=== PATIENT | male | born 1930 | race Caucasian/White ===

== ENCOUNTER → 2017-09-24 | Outpatient (CLI) | payer MEDICARE, BC ==
[~2017-09-24] MED LIST: ALDACTAZIDE; ALDACTAZIDE 501 EACH PO; ALFUZOSIN HCL10 MG PO; B 12; DIGOXIN; DIGOXIN50 MCG/1 M PO; ELIQUIS PO; GABAPENTIN300 MG PO; METFORMIN HCL500 MG PO; MULTI VIT; PRAVASTATIN SOD80 MG PO; TIZANIDINE HCL4 M1 PO; VIT. E; WARFARIN; [UNRECOGNIZED DRUG - CODE]
--- NOTE | 2017-09-24 15:03 | Diagnostic Imaging Report ---
PROCEDURE:X-RAY MODIFIED BARIUM SWALLOW COMPARISON:None. INDICATIONS:DYSPHAGIA, SILENT ASPIRATION THINS DISCUSSION:Fluoroscopic examination was performed in conjunction with speech pathology, during swallowing of a variety of thin and thick liquid consistencies. The radiologist was in attendance. There was penetration into the laryngeal vestibule to the level of the vocal cords with thin liquids only. Intermittently patient produced a cough which was not effective in clearing the penetrated material. There was one episode of silent minimal aspiration of thin liquids after swallowing. Residua in the vallecula fell into the laryngeal vestibule and eventually spilled into the airway. Fluoroscopy time: 1.7 minutes Total dose: 11.10 mGy CONCLUSION:Penetration and aspiration noted. Please see the report from speech pathology for complete details. Bruce Carter D.O. Dictated by: Bruce Carter D.O. on 09/24/2017 at 15:11 Electronically approved by: Bruce Carter D.O. on 09/24/2017 at 15:11
== END ==
LOC: DX 12:23
PROVIDERS: ATTEND Otolaryngology
DX: R13.13 Dysphagia, pharyngeal phase (principal)
CPT/HCPCS: 74230; 92611; G8996; G8997

== ENCOUNTER 2017-10-21 09:58 | Outpatient (RCR) | payer MEDICARE, BC | END 2017-10-22 | LOC: PT 09:58 | PROVIDERS: ATTEND Otolaryngology | DX: R13.13 Dysphagia, pharyngeal phase (principal); K21.9 Gastro-esophageal reflux disease without esophagitis | CPT/HCPCS: 92526 ×6; 97110 ×5; 97162; G8978; G8979; G8996; G8997 ==

== ENCOUNTER 2017-11-11 09:48 | Outpatient (RCR) | payer MEDICARE, BC | END 2017-11-19 | LOC: ST 09:48 | PROVIDERS: ATTEND Otolaryngology | DX: R13.13 Dysphagia, pharyngeal phase (principal); K21.9 Gastro-esophageal reflux disease without esophagitis | CPT/HCPCS: 92526 ×6; 97110 ×2; G8979; G8980 ==

== ENCOUNTER → 2017-11-25 | Outpatient (CLI) | payer MEDICARE, BC ==
--- NOTE | 2017-11-25 13:55 | Diagnostic Imaging Report ---
PROCEDURE:X-RAY MODIFIED BARIUM SWALLOW COMPARISON:None. INDICATIONS:Not provided. DISCUSSION:Fluoroscopic examination was performed in conjunction with speech pathology, during swallowing of a variety of thin and thick liquid consistencies. Fluoroscopy time: 1.7 min Total Dose: 10.07 mGy CONCLUSION:No penetration or aspiration. Please see the report from speech pathology for complete details. Bruce Carter D.O. Dictated by: Bruce Carter D.O. on 11/25/2017 at 13:55 Electronically approved by: Bruce Carter D.O. on 11/25/2017 at 13:55
== END ==
LOC: DX 10:34
PROVIDERS: ATTEND Otolaryngology
DX: R13.13 Dysphagia, pharyngeal phase (principal)
CPT/HCPCS: 74230; 92611; G8996; G8997; G8998